=== PATIENT | male | born 1960 | race Caucasian/White ===

== ENCOUNTER → 2017-11-26 | Outpatient (CLI) | payer OTHER | LOC: CFH 09:22 | PROVIDERS: ATTEND Nurse Practitioner Family | DX: R91.1 Solitary pulmonary nodule (principal); Z90.49 Acquired absence of other specified parts of digestive tract | CPT/HCPCS: 71250 ==

== ENCOUNTER → 2017-12-18 | Outpatient (CLI) | payer OTHER ==
[~2017-12-18] MED LIST: CHOL200074 PO; FLUT100B INH; FLUT9.9S NS; MAGN400T7 PO; PROP20TA PO
== END | disposition home or self-care (01) ==
LOC: STAR 10:12
PROVIDERS: ATTEND Internal Medicine Critical Care Medicine
DX: Z02.9 Encounter for administrative examinations, unspecified (principal)

== ENCOUNTER → 2018-02-27 | Outpatient (CLI) | payer OTHER | END | disposition home or self-care (01) | LOC: PETCFH 08:33 | PROVIDERS: ATTEND Internal Medicine Critical Care Medicine | DX: R91.1 Solitary pulmonary nodule (principal) | CPT/HCPCS: 78815; A9552 ==

== ENCOUNTER 2018-08-21 14:13 | Outpatient (CLI) | payer OTHER | END 2018-08-21 23:59 | disposition home or self-care (01) | LOC: CFH 14:13 | PROVIDERS: ATTEND Nurse Practitioner Family | DX: I51.7 Cardiomegaly (principal); M51.34 Other intervertebral disc degeneration, thoracic region; Z87.891 Personal history of nicotine dependence | CPT/HCPCS: 71250; 93306 ==

== ENCOUNTER → 2019-05-07 | Outpatient (CLI) | payer OTHER ==
[~2019-05-07] MED LIST changes: +HYDR-3245 PO; -MAGN400T7 PO; +MAGN400T9 PO; +METH750T87 PO
== END | disposition home or self-care (01) ==
LOC: CFH 08:10
PROVIDERS: ATTEND Neurological Surgery
DX: M47.12 Other spondylosis with myelopathy, cervical region (principal); M25.78 Osteophyte, vertebrae; M48.02 Spinal stenosis, cervical region; M47.9 Spondylosis, unspecified; M50.30 Other cervical disc degeneration, unspecified cervical region; M46.92 Unspecified inflammatory spondylopathy, cervical region; F17.200 Nicotine dependence, unspecified, uncomplicated; Z83.3 Family history of diabetes mellitus; Z82.49 Family history of ischemic heart disease and other diseases of the circulatory system
CPT/HCPCS: 72040; 72141

== ENCOUNTER → 2019-05-07 | Outpatient (CLI) | payer OTHER ==
[~2019-05-07] MED LIST changes: -HYDR-3245 PO; -METH750T87 PO
[2019-05-07 10:19] LABS: BASOPHILS # (AUTO) 0.03 x10^3/uL (0-0.1); BASOPHILS % (AUTO) 0 % (0-1); EOSINOPHILS # (AUTO) 0.12 x10^3/uL (0-0.4); EOSINOPHILS % (AUTO) 1 % (1-7); LYMPHOCYTES # (AUTO) 2.39 x10^3/uL (1-3.4); LYMPHOCYTES % (AUTO) 23 % (22-44); MD NO; MEAN CORPUSCULAR HEMOGLOBIN 33.5 pg (27.5-34.5); MEAN CORPUSCULAR HGB CONC 33.8 g/dL (33.2-36.2); MEAN CORPUSCULAR VOLUME 98.9 fL (81-97); MEAN PLATELET VOLUME 10.2 fL (7.4-10.4); MONOCYTES % (AUTO) 11 % (2-9); NEUTROPHILS # (AUTO) 6.73 x10^3/uL (1.8-6.8); NEUTROPHILS % (AUTO) 65 % (42-75); PLATELET COUNT 179 x10^3/uL (130-400); RED BLOOD COUNT 4.84 x10^6/uL (4.38-5.82)
[2019-05-07 10:27] LABS: INTERNATIONAL NORMALIZED RATIO 1.03 (0.93-1.1); PROTHROMBIN TIME 10.8 Seconds (9.6-11.5)
[2019-05-07 10:30] LABS: ANION GAP 3 mmol/L (5-15); CALCIUM 9.2 mg/dL (8.5-10.1); CHLORIDE 108 mmol/L (98-107)
[2019-05-07 10:31] LABS: CREATININE 1.13 mg/dL (0.7-1.3)
== END | disposition home or self-care (01) ==
LOC: STAR 09:26
PROVIDERS: ATTEND Neurological Surgery
DX: Z01.818 Encounter for other preprocedural examination (principal); M50.022 Cervical disc disorder at C5-C6 level with myelopathy; F17.200 Nicotine dependence, unspecified, uncomplicated; E78.5 Hyperlipidemia, unspecified; Z82.49 Family history of ischemic heart disease and other diseases of the circulatory system; Z83.3 Family history of diabetes mellitus; Z88.1 Allergy status to other antibiotic agents
CPT/HCPCS: 36415; 71046; 80048; 85025; 85610; 85730; 93005

== ENCOUNTER 2019-05-13 05:23 | Inpatient (IN) | payer OTHER ==
[~2019-05-13] VITALS: Ht 182.9 cm; Wt 112.0 kg
[2019-05-13] MEDS ORDERED: LACTATED RINGERS 1,000 ML IV SCH (06:13)
[2019-05-13] MEDS ORDERED: BACITRACIN 50,000 UNIT ONE (06:31)
[2019-05-13] MEDS ORDERED: BUPIVACAINE/PF 0.5% ONE (06:31)
[2019-05-13] MEDS ORDERED: EPINEPHRINE 1 MG/ML, 1ML ONE (06:31)
[2019-05-13] MEDS ORDERED: THROMBIN 5,000 UNIT VIAL TP ONE (06:31)
[2019-05-13] MEDS ORDERED: ACETAMINOPHEN 500 MG TABLET ONE (07:23)
[2019-05-13] MEDS ORDERED: GABAPENTIN 300 MG CAPSULE ONE (07:24)
[2019-05-13] MEDS ORDERED: MIDAZOLAM 1 MG/ML, 2ML ONE (07:29)
[2019-05-13] MEDS ORDERED: FENTANYL PF 250 MCG/5ML ONE (07:29)
[2019-05-13] MEDS ORDERED: PROPOFOL 10 MG/ML, 20ML ONE (07:31)
[2019-05-13] MEDS ORDERED: SUCCINYLCHOLINE 20 MG/ML, 10ML ONE (07:31)
[2019-05-13] MEDS ORDERED: ONDANSETRON 2MG/ML, 2ML ONE (07:31)
[2019-05-13] MEDS ORDERED: GLYCOPYRROLATE 0.2MG/1ML, 5ML ONE (07:31)
[2019-05-13] MEDS ORDERED: DEXAMETHASONE 4 MG/ML, 1ML ONE (07:31)
[2019-05-13] MEDS ORDERED: HYDROmorphone 2 MG/ML, 1ML IVPush PRN (08:30)
[2019-05-13] MEDS ORDERED: ACETAMINOPHEN 325 MG TABLET PO PRN ×2 (08:30→11:30)
[2019-05-13] MEDS ORDERED: FENTANYL PF 100 MCG/2ML IV PRN (08:30)
[2019-05-13] MEDS ORDERED: ALBUTEROL SULFATE 2.5 MG/3 ML NPPB PRN (08:30)
[2019-05-13] MEDS ORDERED: LABETALOL 5MG/ML, 20ML IV PRN (08:30)
[2019-05-13] MEDS ORDERED: hydrALAzine 20 MG/ML, 1ML IV PRN (08:30)
[2019-05-13] MEDS ORDERED: MEPERIDINE/PF 25MG/0.5ML IVPush PRN (08:30)
[2019-05-13] MEDS ORDERED: PROMETHAZINE 25 MG/ML, 1ML IV PRN (08:30)
[2019-05-13] MEDS ORDERED: KETOROLAC 30 MG/1 ML IV PRN (08:30)
[2019-05-13] MEDS ORDERED: DIAZEPAM 5 MG/ML, 2ML IVPush PRN (08:30)
[2019-05-13] MEDS ORDERED: OXYcodone 5 MG/5 ML ORAL.SOL UDC PO PRN (08:30)
[2019-05-13] MEDS ORDERED: FENTANYL PF 100 MCG/2ML ONE (09:53)
[2019-05-13] MEDS ORDERED: METHOCARBAMOL 1,000 MG in DEXTROSE 5% 100 ML IV ONE (10:00)
[2019-05-13] MEDS ORDERED: ONDANSETRON 2MG/ML, 2ML IV PRN (11:30)
[2019-05-13] MEDS ORDERED: DIPHENHYDRAMINE 50 MG/ML, 1ML IM PRN (11:30)
[2019-05-13] MEDS ORDERED: morphine SULFATE 10 MG/ML, 1ML IV PRN (11:30)
[2019-05-13] MEDS ORDERED: BISACODYL 10 MG SUPP PR PRN (11:30)
[2019-05-13] MEDS ORDERED: MAGNESIUM HYDROXIDE 8%, 30ML UDC PO PRN (11:30)
[2019-05-13] MEDS ORDERED: METHOCARBAMOL 750 MG TABLET PO PRN (11:30)
[2019-05-13] MEDS ORDERED: ACETAMINOPHEN 650 MG SUPP PR PRN (11:30)
[2019-05-13] MEDS ORDERED: DIPHENHYDRAMINE 50 MG CAPSULE PO PRN (11:30)
[2019-05-13] MEDS ORDERED: PROMETHAZINE 25 MG/ML, 1ML IM PRN (11:30)
[2019-05-13] MEDS: HYDROcodone/APAP 10/325 MG TABLET PO PRN ×3 (12:02→21:22)
[2019-05-13 14:00] VITALS: BP 152/64
[2019-05-13] MEDS: NS + 20MEQ KCL 1,000 ML IV SCH (14:36)
[2019-05-13] MEDS: CEFAZOLIN PMX 2GM/50ML 50 ML IVPB SCH ×2 (15:47→23:52)
[2019-05-13] MEDS ORDERED: OXYcodone/APAP 5/325MG TABLET PO PRN (17:30)
[2019-05-13 19:17] VITALS: BP 135/93
[2019-05-13] MEDS: BUDESONIDE 0.5 MG/2 ML INHA NPPB SCH (21:00)
[2019-05-13] MEDS: MAGNESIUM OXIDE 400 MG TABLET PO SCH (21:22)
[2019-05-13] MEDS: PROPRANOLOL 20 MG TABLET PO SCH (21:22)
[2019-05-14] VITALS: BP 129/65
[2019-05-14] MEDS: NS + 20MEQ KCL 1,000 ML IV SCH ×2 (00:18→12:00)
[2019-05-14 03:48] VITALS: BP 133/72
[2019-05-14] MEDS: HYDROcodone/APAP 10/325 MG TABLET PO PRN ×2 (04:10→09:07)
[2019-05-14] MEDS: CEFAZOLIN PMX 2GM/50ML 50 ML IVPB SCH (07:16)
[2019-05-14] MEDS: BUDESONIDE 0.5 MG/2 ML INHA NPPB SCH (09:00)
[2019-05-14] MEDS: PROPRANOLOL 20 MG TABLET PO SCH (09:00)
[2019-05-14] MEDS ORDERED: FLUTICASONE NASAL SPRAY 16GM NAS SCH (09:00)
[2019-05-14] MEDS: MAGNESIUM OXIDE 400 MG TABLET PO SCH (09:00)
[2019-05-14] MEDS ORDERED: SENNA/DOCUSATE TABLET PO SCH (09:00)
[2019-05-14] MEDS ORDERED: MAGNESIUM HYDROXIDE 8%, 30ML UDC PO ONE (11:30)
[2019-05-14] MEDS ORDERED: HYDR-3245 PO (12:00)
[2019-05-14] MEDS ORDERED: METH750T87 PO (12:02)
== END 2019-05-14 13:10 | disposition home or self-care (01) | DRG 472 ==
LOC: ORIP 05:23 → 4NW 10:32 → DCLOUNGE 05-14 12:53
PROVIDERS: ADMIT Neurological Surgery; ATTEND Neurological Surgery
PROC: 0RB30ZZ Excision of Cervical Vertebral Disc, Open Approach (ICD-10-PCS; 2019-05-13)
PROC: 00NW0ZZ Release Cervical Spinal Cord, Open Approach (ICD-10-PCS; 2019-05-13)
PROC: 0RG10A0 Fusion of Cervical Vertebral Joint with Interbody Fusion Device, Anterior Approach, Anterior Column, Open Approach (ICD-10-PCS; principal; 2019-05-13 07:30)
DX: M48.02 Spinal stenosis, cervical region (principal); J84.9 Interstitial pulmonary disease, unspecified; G95.20 Unspecified cord compression; G95.9 Disease of spinal cord, unspecified; F17.210 Nicotine dependence, cigarettes, uncomplicated; G47.33 Obstructive sleep apnea (adult) (pediatric); M54.12 Radiculopathy, cervical region; Z90.49 Acquired absence of other specified parts of digestive tract; Z88.1 Allergy status to other antibiotic agents
CPT/HCPCS: 72040; S0020; C1713; G0378; J0171; J0690; J1100; J2250; J2405; J2704; J3010; J3480; C1762; J0330; J2800; J7120

== ENCOUNTER 2019-05-22 12:52 | Outpatient (CLI) | payer OTHER ==
[~2019-05-22 12:52] MED LIST changes: +HYDR-3245 PO; +METH750T87 PO
== END 2019-05-22 23:59 | disposition home or self-care (01) ==
LOC: RAD 12:52 → EDSTATUS 13:00 → RAD 23:59
PROVIDERS: ATTEND Physician Assistant
DX: R22.1 Localized swelling, mass and lump, neck (principal); M54.12 Radiculopathy, cervical region; M54.9 Dorsalgia, unspecified; M54.2 Cervicalgia; Z87.891 Personal history of nicotine dependence; Z84.89 Family history of other specified conditions; Z83.3 Family history of diabetes mellitus
CPT/HCPCS: 76536

== ENCOUNTER → 2019-08-21 | Outpatient (CLI) | payer OTHER | END | disposition home or self-care (01) | LOC: CFH 10:55 | PROVIDERS: ATTEND Nurse Practitioner Family | DX: Z12.2 Encounter for screening for malignant neoplasm of respiratory organs (principal); R91.1 Solitary pulmonary nodule; I25.10 Atherosclerotic heart disease of native coronary artery without angina pectoris; M51.34 Other intervertebral disc degeneration, thoracic region; F17.200 Nicotine dependence, unspecified, uncomplicated | CPT/HCPCS: G0297 ==

== ENCOUNTER 2019-09-08 11:31 | Outpatient (CLI) | payer OTHER | END 2019-09-08 23:59 | disposition home or self-care (01) | LOC: RAD 11:31 | PROVIDERS: ATTEND Nurse Practitioner Family | DX: R91.1 Solitary pulmonary nodule (principal); M51.34 Other intervertebral disc degeneration, thoracic region | CPT/HCPCS: 71250 ==

== ENCOUNTER 2019-09-11 08:49 | Day surgery (SDC) | payer OTHER ==
[~2019-09-11] VITALS: Ht 182.9 cm; Wt 114.0 kg
[2019-09-11 09:20] VITALS: BP 124/80
[2019-09-11] MEDS ORDERED: LACTATED RINGERS 1,000 ML IV SCH (09:25)
[2019-09-11] MEDS ORDERED: ONDANSETRON 2MG/ML, 2ML ONE (10:54)
[2019-09-11] MEDS ORDERED: CEFAZOLIN 1,000 MG ONE (10:54)
[2019-09-11] MEDS ORDERED: SUCCINYLCHOLINE 20 MG/ML, 10ML ONE (10:54)
[2019-09-11] MEDS ORDERED: GLYCOPYRROLATE 0.2MG/1ML, 5ML ONE (10:54)
[2019-09-11] MEDS ORDERED: NEOSTIGMINE 1 MG/ML, 10ML ONE (10:54)
[2019-09-11] MEDS ORDERED: ROCURONIUM 10MG/ML,5ML ONE (10:54)
[2019-09-11] MEDS ORDERED: DEXAMETHASONE 4 MG/ML, 1ML ONE (10:54)
[2019-09-11] MEDS ORDERED: PROPOFOL 10 MG/ML, 20ML ONE (10:54)
[2019-09-11] MEDS ORDERED: FENTANYL PF 100 MCG/2ML ONE ×2 (10:54→12:36)
[2019-09-11] MEDS ORDERED: MIDAZOLAM 1 MG/ML, 2ML ONE (10:54)
[2019-09-11] MEDS ORDERED: ALBUTEROL SULFATE 2.5 MG/3 ML NPPB PRN (11:30)
[2019-09-11] MEDS ORDERED: MORPHINE SULFATE 4 MG/ML, 1ML IVPush PRN (11:30)
[2019-09-11] MEDS ORDERED: hydrALAzine 20 MG/ML, 1ML IV PRN (11:30)
[2019-09-11] MEDS ORDERED: FENTANYL PF 100 MCG/2ML IV PRN (11:30)
[2019-09-11] MEDS ORDERED: MEPERIDINE/PF 25MG/ML,1ML IVPush PRN (11:30)
[2019-09-11] MEDS ORDERED: LABETALOL 5MG/ML, 20ML IV PRN (11:30)
[2019-09-11] MEDS ORDERED: PROMETHAZINE 25 MG/ML, 1ML IV PRN (11:30)
[2019-09-11] MEDS ORDERED: EPHEDRINE 50 MG/ML, 1ML ONE (11:36)
[2019-09-11] MEDS ORDERED: ACETAMINOPHEN 650 MG/20.3 ML UDC ONE (12:53)
[2019-09-11] MEDS ORDERED: ACETAMINOPHEN 325 MG TABLET PO PRN (13:00)
== END 2019-09-11 15:00 | disposition home or self-care (01) ==
LOC: OUT 08:49
PROVIDERS: ATTEND Internal Medicine
DX: R91.8 Other nonspecific abnormal finding of lung field (principal); J18.9 Pneumonia, unspecified organism; J98.4 Other disorders of lung; I10 Essential (primary) hypertension; G47.30 Sleep apnea, unspecified; E66.9 Obesity, unspecified; Z88.8 Allergy status to other drugs, medicaments and biological substances
CPT/HCPCS: 31623; 31624; 31627; 31628; 71045; 87015; 87070; 87102; 87116; 87205; 87206; 88112; 88172; 88173; 88177; 88305; J0330; J0690; J1100; J2250; J2405; J2704; J2710; J3010; J7120; 31629; 76000

== ENCOUNTER → 2020-03-08 | Outpatient (CLI) | payer OTHER | END | disposition home or self-care (01) | LOC: CFH 08:38 | PROVIDERS: ATTEND Nurse Practitioner Family | DX: J84.10 Pulmonary fibrosis, unspecified (principal); R91.1 Solitary pulmonary nodule; J98.4 Other disorders of lung | CPT/HCPCS: 71250 ==

== ENCOUNTER → 2020-09-12 | Outpatient (CLI) | payer OTHER ==
[~2020-09-12] MED LIST changes: -HYDR-3245 PO; +HYDR1TAB53 PO
== END | disposition home or self-care (01) ==
LOC: CFH 09:53
PROVIDERS: ATTEND Nurse Practitioner Family
DX: R91.8 Other nonspecific abnormal finding of lung field (principal); J98.4 Other disorders of lung; M51.34 Other intervertebral disc degeneration, thoracic region; K86.89 Other specified diseases of pancreas
CPT/HCPCS: 71250

== ENCOUNTER → 2021-02-21 | Outpatient (CLI) | payer OTHER | END | disposition home or self-care (01) | LOC: CFH 10:33 | PROVIDERS: ATTEND Nurse Practitioner Family | DX: R91.8 Other nonspecific abnormal finding of lung field (principal); R91.1 Solitary pulmonary nodule; Z90.49 Acquired absence of other specified parts of digestive tract | CPT/HCPCS: 71250 ==

== ENCOUNTER 2021-03-26 12:03 | Emergency (ER) | payer OTHER ==
[~2021-03-26] VITALS: Ht 182.9 cm; Wt 115.6 kg
[2021-03-26 12:14] VITALS: BP 147/71
[2021-03-26] MEDS ORDERED: COVID-19 VACC,MRNA(MODERNA)/PF 100 MCG/0.5ML IM-VACC ONE ×2 (12:30→13:30)
--- NOTE | 2021-03-26 14:58 | NUR ---
PT VACCINATED, MONITORED FOR 15 MIN WITHOUT COMPLICATIONS AND DISCHARGED.
== END 2021-03-26 15:02 | disposition home or self-care (01) ==
LOC: ED 14:57
DX: J44.9 Chronic obstructive pulmonary disease, unspecified (principal); Z20.822 Contact with and (suspected) exposure to COVID-19; Z23 Encounter for immunization
CPT/HCPCS: 0011A; 87635; 91301; 99283